=== PATIENT | male | born 1985 ===

== ENCOUNTER 2018-01-03 12:13 | Emergency (ER) | payer SELFPAY ==
--- NOTE | 2018-01-03 12:45 | C.PDOC ---
History Of Present Illness 32 y/o male brought to ED via BLS for alcohol intoxication. Pt admits to drinking alcohol. Otherwise, denies any physical complaints. Time Seen by Provider: 01/03/18 12:19 Chief Complaint (Nursing): Substance Abuse History Per: Patient History/Exam Limitations: no limitations Past Medical History Reviewed: Historical Data, Nursing Documentation, Vital Signs Vital Signs: Last Vital Signs Temp 98.2 F 01/03/18 16:00 Pulse 71 01/03/18 16:00 Resp 14 01/03/18 16:00 BP 106/68 01/03/18 16:00 Pulse Ox 96 01/03/18 18:10 Family History: States: Unknown Family Hx - Social History Hx Alcohol Use: Yes Hx Substance Use: No - Immunization History Hx Tetanus Toxoid Vaccination: No Hx Influenza Vaccination: No Hx Pneumococcal Vaccination: No Review Of Systems Except As Marked, All Systems Reviewed And Found Negative. Constitutional: Negative for: Fever, Chills Cardiovascular: Negative for: Chest Pain, Palpitations Respiratory: Negative for: Cough, Shortness of Breath Gastrointestinal: Negative for: Nausea, Vomiting, Abdominal Pain Physical Exam - Physical Exam Appears: Non-toxic, No Acute Distress, Other (EtOH on breath) Skin: Normal Color, Warm, Dry Head: Atraumatic, Normacephalic Eye(s): bilateral: Normal Inspection Oral Mucosa: Moist Neck: Supple Cardiovascular: Rhythm Regular Respiratory: Normal Breath Sounds, No Rales, No Rhonchi, No Wheezing Gastrointestinal/Abdominal: Soft, No Tenderness Extremity: Normal ROM, No Deformity Neurological/Psych: Oriented x3, Normal Speech ED Course And Treatment O2 Sat by Pulse Oximetry: 96 Pulse Ox Interpretation: Normal Medical Decision Making Medical Decision Makin:05 Pt still intoxicated On re-eval, pt is awake, alert, oriented x3, ambulatory with steady gait. Pt is being discharged home with instructions to follow up with PMD. Disposition - Disposition Referrals: [facility] at [facility] [Outside] Disposition: HOME/ ROUTINE Disposition Time: 18:15 Condition: FAIR Additional Instructions: follow up with medical clinic within 2 days call to make an appointment take medications as prescribed return to ER if symptoms worsens or progress decrease your alcohol use Instructions: Alcohol Abuse and Alcoholism (DC) Forms: Gen Discharge Inst [facility], [employer] ([facility] [place]) Print Language: MALAY - Clinical Impression Clinical Impression: Alcohol intoxication - Scribe Statement The provider has reviewed the documentation as recorded by the Scribe KP All medical record entries made by the Scribe were at my direction and personally dictated by me. I have reviewed the chart and agree that the record accurately reflects my personal performance of the history, physical exam, medical decision making, and the department course for this patient. I have also personally directed, reviewed, and agree with the discharge instructions and disposition.
[2018-01-03 18:41] VITALS: BP 104/65; PULSE 83; RESP 17; TEMP 98.1; O2SAT 98
== END 2018-01-03 18:34 | disposition home or self-care (01) ==
LOC: C.ER 12:13
DX: F10.129 Alcohol abuse with intoxication, unspecified (principal)